=== PATIENT | male | born 1995 | race Caucasian/White ===

== ENCOUNTER 2017-01-12 04:38 | Emergency (ER) | payer OTHER ==
[~2017-01-12] VITALS: Ht 180.3 cm; Wt 72.0 kg
[2017-01-12 04:50] VITALS: Ht 180.3 cm; Wt 72.0 kg
[2017-01-12] MEDS ORDERED: ONDANSETRON (ODT) 4 MG TAB ODT STA (05:13)
--- NOTE | 2017-01-12 05:16 | ERD ---
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 He states that he feels a burning sensation in his throat. He states that he has had similar symptoms like this in the past. He states that he does eat a lot of spicy foods and has developed this symptom after eating. Denies radiation of pain. Denies vomiting or diarrhea. Last bowel movement was today. Denies chest pain or shortness of breath or difficulty breathing. Denies headache or dizziness. Denies cough or sore throat. Denies fever or chills. Has not taken any medication for his symptoms. ROS All systems reviewed and are negative except as per history of present illness. Medications Home Meds Active Scripts Famotidine* (Pepcid*) 20 Mg Tablet, 20 MG PO BID for 30 Days, TAB Prov:PAKO GARCIA PA-C 01/12/17 Allergies Allergies: Coded Allergies: No Known Allergy (Unverified , 01/12/17) PMhx/Soc History of Surgery: No Anesthesia Reaction: No Hx Neurological Disorder: No Hx Respiratory Disorders: No Hx Cardiac Disorders: No Hx Psychiatric Problems: No Hx Miscellaneous Medical Probl: No Hx Alcohol Use: No Hx Substance Use: No Hx Tobacco Use: No Smoking Status: Current some day smoker Physical Exam Vitals Vital Signs Date Time Temp Pulse Resp B/P Pulse Ox O2 Delivery O2 Flow Rate FiO2 01/12/17 04:50 99.4 96 20 134/63 98 Physical Exam GENERAL: Well-developed, well-nourished male. Appears in no acute distress. HEAD: Normocephalic, atraumatic. EYES: Pupils are equally reactive bilaterally. EOMs grossly intact. No conjunctival erythema. ENT: Moist mucous membranes. No uvula deviation. No kissing tonsils. No exudates. NECK: Supple. No lymphadenopathy or thyromegaly. No meningismus. negative kernig. negative brudinski. LUNG: Clear to auscultation bilaterally. No rhonchi, wheezing, rales or coarse breath sounds. HEART: Regular rate and rhythm. No murmurs, rubs or gallops. ABDOMEN: No scars, ecchymosis or rashes noted. Soft, nontender, and nondistended. Positive bowel sounds in all four quadrants. No rebound tenderness , no guarding. (-) McBurneys point tenderness. No CVA tenderness. Mild tenderness in the epigastric region BACK: No midline tenderness. Extremities: Equal pulses bilaterally. No peripheral clubbing, cyanosis or edema. No unilateral leg swelling. NEUROLOGIC: Alert and oriented. Moving all four extremities. 5/5 strength in all extremities. Normal speech. Steady gait. SKIN: Normal color. Warm and dry. No rashes or lesions. Capillary refill < 2 seconds Results 24 hrs Current Medications Medications (Trade) Dose Ordered Sig/Cipriano Route PRN Reason Start Time Stop Time Status Last Admin Dose Admin Miscellaneous Medication (Gi Cocktail (2)) 40 ml ONCE ONCE PO 01/12/17 05:30 01/12/17 05:31 DC 01/12/17 05:25 Famotidine (Pepcid) 20 mg ONCE ONCE PO 01/12/17 05:30 01/12/17 05:31 DC 01/12/17 05:25 Ondansetron HCl (Zofran Odt) 4 mg ONCE STAT ODT 01/12/17 05:13 01/12/17 05:14 DC 01/12/17 05:25 Procedures/MDM ER COURSE: I kept the patient and/or family informed of laboratory and diagnostic imaging results throughout the emergency room course. EKG performed, read by Dr. Kovacs 87bpm, normal sinus rhythm, normal axis, no acute ST segment changes, no T wave inversion GI cocktail. Pepcid. Zofran. Tolerated well with no adverse reaction. MEDICAL DECISION MAKING: This is a 21-year-old male who presents with epigastric pain 1 day. Vital signs were reviewed. Patient is afebrile. Patient is not hypoxic. Patient is not toxic or ill-appearing. Patient likely has acid reflux. I reexamined patient after GI cocktail. Patient seen improvement in symptoms after GI cocktail and Pepcid. Low suspicion for ACS, PE, AAA, dissection, DVT. Low suspicion for cardiac emergency as patient does not have any risk factors and is not complaining of chest pain. Low suspicion for ACS, AAA, perforated ulcer , bowel obstruction, cholecystitis, choledocholithiasis, cholangitis, pancreatitis, hepatic abscess, appendicitis, diverticulitis, gastroenteritis, hepatitis, peptic ulcer disease, HELLP syndrome. DISCHARGE: At this time, patient is stable for discharge and outpatient management with no new complaints during the ER course. [facility] Patient will be discharged home with instructions to recheck for new or worsening symptoms such as fever, nausea, weakness, LOC and to follow up with primary care in the next 1-2 days. Patient was advised to return to the ER for any new or worsening symptoms. Plan was discussed and patient and/or family understands and agrees. Home instructions were given. Departure Diagnosis: Primary Impression: Epigastric pain Condition: Stable PAKO GARCIA PA-C Jan 12, 2017 05:16
[2017-01-12] MEDS ORDERED: LIDOCAINE/MYLANTA 40 ML BTL PO ONE (05:30)
[2017-01-12] MEDS ORDERED: FAMO-18 PO (05:30)
[2017-01-12] MEDS ORDERED: FAMOTIDINE 20 MG TAB PO ONE (05:30)
== END 2017-01-12 06:10 | disposition home or self-care (01) ==
LOC: FTE 04:38
DX: R10.13 Epigastric pain (principal); F17.210 Nicotine dependence, cigarettes, uncomplicated
CPT/HCPCS: 93005; Z7610; 99283